=== PATIENT | male | born 1970 | race Caucasian/White ===

== ENCOUNTER 2023-01-08 08:20 | Day surgery (SDC) | payer OTHER ==
[~2023-01-08] VITALS: Ht 170.2 cm; Wt 93.0 kg
[2023-01-08] MEDS ORDERED: diphenhydrAMINE 50 MG/ML VIAL ONE (09:50)
[2023-01-08] MEDS ORDERED: MIDAZOLAM 5 MG/5 ML VIAL ONE (09:51)
[2023-01-08] MEDS ORDERED: fentaNYL citrate 0.05 MG/ML VIAL ONE (09:51)
[2023-01-08] MEDS ORDERED: LIDOCAINE 2% 100 MG/5 ML UJET TP ONE (09:51)
[2023-01-08] MEDS ORDERED: MIDAZOLAM 2 MG/2 ML VIAL IVP ONE (12:15)
[2023-01-08] MEDS ORDERED: fentaNYL citrate 0.05 MG/ML VIAL IVP ONE (12:15)
== END 2023-01-08 11:15 | disposition home or self-care (01) ==
LOC: MDS 08:20 → MMU 08:23 → MDS 11:15
PROVIDERS: ATTEND Internal Medicine Gastroenterology
DX: Z12.11 Encounter for screening for malignant neoplasm of colon (principal); K63.5 Polyp of colon; K57.30 Diverticulosis of large intestine without perforation or abscess without bleeding; Z79.899 Other long term (current) drug therapy
CPT/HCPCS: 45385; 88305; J2250; J3010; J1200